=== PATIENT | male | born 1960 ===

== ENCOUNTER 2022-12-13 07:21 | Emergency (ER) | payer OTHER ==
[~2022-12-13] VITALS: Ht 172.7 cm; Wt 81.2 kg
[~2022-12-13 07:21] MED LIST: TRAM1TAB98 PO
[2022-12-13] MEDS ORDERED: COZAAR50 MG PO (07:52)
== END 2022-12-13 16:01 | disposition home or self-care (01) ==
LOC: ER 07:21
DX: K52.9 Noninfective gastroenteritis and colitis, unspecified (principal); R10.9 Unspecified abdominal pain; A08.8 Other specified intestinal infections; I10 Essential (primary) hypertension; Z88.6 Allergy status to analgesic agent